=== PATIENT | female | born 1985 | race Caucasian/White ===

== ENCOUNTER 2018-03-17 22:55 | Emergency (ER) | payer SELFPAY | END 2018-03-17 23:30 | disposition left against medical advice (07) | LOC: ED 22:55 | DX: R51 Headache (principal); Z53.21 Procedure and treatment not carried out due to patient leaving prior to being seen by health care provider ==

== ENCOUNTER 2018-03-20 21:08 | Emergency (ER) | payer SELFPAY ==
[2018-03-20] MEDS ORDERED: MOTRIN PO ONE (21:49)
[2018-03-20 22:25] LABS: HCG Qualitative,Urine Negative (Negative)
--- NOTE | 2018-03-21 04:29 | Emergency Department Report ---
ED General Adult HPI - General Chief complaint: Urogenital-Female Stated complaint: RIGHT BREAST PAIN, CHILLS Time Seen by Provider: 03/21/18 03:48 Source: patient Mode of arrival: Ambulatory Limitations: No Limitations - History of Present Illness Initial comments: 32-year-old female comes in complaining of right breast pain chills and weakness. She reports that she's had right breast pain 1 week and he feels like needles at times. Patient denies any shortness of breath at this moment. She does admit to chills she denies any nipple discharge. 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 Patient has not taken any pain medication for this pain and her last menstrual period was 2 weeks ago. Patient reports no past medical history she's had a C- section currently takes no medications on a daily basis. -: week(s) (1) Location: chest Severity scale (0 -10): 6 Worsens with: movement Associated Symptoms: fever/chills (chills) - Related Data Previous Rx's Medication Instructions Recorded Last Taken Type Ibuprofen [Motrin 600 MG tab] 600 mg PO Q8H PRN #30 tablet 03/21/18 Unknown Rx Allergies Allergy/AdvReac Type Severity Reaction Status Date / Time No Known Allergies Allergy Verified 03/21/18 04:00 ED Review of Systems ROS: Stated complaint: RIGHT BREAST PAIN, CHILLS Other details as noted in HPI Constitutional: chills, malaise Eyes: denies: eye pain, eye discharge, vision change ENT: denies: ear pain, throat pain Respiratory: denies: cough, shortness of breath, wheezing Cardiovascular: chest pain Endocrine: no symptoms reported Gastrointestinal: denies: abdominal pain, nausea, diarrhea Genitourinary: other (breast pain right) Musculoskeletal: denies: back pain, joint swelling, arthralgia Skin: denies: rash, lesions ED Past Medical Hx - Past Medical History Previous Medical History?: No - Surgical History Past Surgical History?: No - Social History Smoking Status: Never Smoker Substance Use Type: None - Medications Home Medications: Home Medications Medication Instructions Recorded Confirmed Last Taken Type Ibuprofen [Motrin 600 MG tab] 600 mg PO Q8H PRN #30 tablet 03/21/18 Unknown Rx ED Physical Exam - General Limitations: No Limitations - Respiratory Respiratory exam: Present: normal lung sounds bilaterally, chest wall tenderness , other (breast exam performed shows that there is no nipple discharge breasts are cystic but most of her pain is when I deep palpation to the pectoralis.). Absent: respiratory distress - Cardiovascular Cardiovascular Exam: Present: regular rate, normal rhythm. Absent: systolic murmur, diastolic murmur, rubs, gallop - GI/Abdominal GI/Abdominal exam: Present: soft, normal bowel sounds ED Course Vital Signs 03/20/18 21:41 Temperature 98.8 F Pulse Rate 78 Respiratory 16 Rate Blood Pressure 113/77 O2 Sat by Pulse 100 Oximetry - Reevaluation(s) Reevaluation #1: 03/21/18 04:27 Patient reports that her chest discomfort has improved with taking ibuprofen. ED Medical Decision Making - Medical Decision Making She has been evaluated by this provider in fast track. Patient was given ibuprofen which she reports has helped with her pain Discussed with patient to take ibuprofen for pain management and to follow-up with the primary care provider for further evaluation. Patient verbalizes understanding. Critical care attestation.: If time is entered above; I have spent that time in minutes in the direct care of this critically ill patient, excluding procedure time. ED Disposition Clinical Impression: Chest wall tenderness, Malaise and fatigue Disposition: DC-01 TO HOME OR SELFCARE Is pt being admited?: No Does the pt Need Aspirin: No Condition: Stable Instructions: Chest Pain (ED) Additional Instructions: Please take pain medication as prescribed. Follow-up with her primary care provider if symptoms persist or gets worse. I highly recommended to rest as much as possible. Prescriptions: Ibuprofen [Motrin 600 MG tab] 600 mg PO Q8H PRN #30 tablet PRN Reason: Pain Referrals: PRIMARY CARE, [Primary Care Provider] - 3-5 Days [facility] [Provider Group] - 3-5 Days Forms: Work/School Release Form(ED)
[2018-03-21 05:11] VITALS: BP 124/76
== END 2018-03-21 05:10 | disposition home or self-care (01) ==
LOC: ED 21:08
DX: R07.89 Other chest pain (principal); R53.1 Weakness
CPT/HCPCS: 81025; 99283